=== PATIENT | female | born 1955 | race Caucasian/White ===

== ENCOUNTER 2017-01-16 11:28 | Emergency (ER) | payer OTHER ==
[~2017-01-16] VITALS: Ht 12.7 cm; Wt 2.7 kg
[~2017-01-16 11:28] MED LIST: ATEN25TA PO; CELE200C PO; HYDR-971 PO; OMEP40CA5 PO; PRED-220 PO; VITA1CAP PO
[2017-01-16 11:40] VITALS: BP 150/72
--- NOTE | 2017-01-16 13:42 | RAD ---
Indication right-sided facial weakness. Noncontrast images of the head were obtained. Comparison is made to previous examination 09/19/2016. The calvarium appears unremarkable. The visualized paranasal sinuses appear normal. There is no subdural or epidural hematoma. The ventricles and sulci are normal given the patient's age. There is no mass or midline shift. No hemorrhage is seen. No acute finding is apparent. IMPRESSION: No acute or significant finding seen in the head PQRS Compliance Statement: One or more of the following individualized dose reduction techniques were utilized for this examination: 1. Automated exposure control 2. Adjustment of the mA and/or kV according to patient size 3. Use of iterative reconstruction technique
--- NOTE | 2017-01-16 13:47 | PHYS DOC ---
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 She states that she felt a pulling in the right side of her mouth. She looked in the mirror and noticed mild drooping. She feels mild drooping of the right eyelid as well. She denies any headache, weakness or numbness of the extremities, slurred speech, or vision changes. She states that this feels the same as her previous Saul's palsy. Her PCP is Dr. Purnima Singh. Dr. Llanes is her neurologist. Review of Systems Review of Systems Constitutional: Denies fever or chills. [] Eyes: Denies change in visual acuity, redness, or eye pain. [] HENT: Denies ear pain, nasal congestion or sore throat. [] Respiratory: Denies cough or shortness of breath. [] Cardiovascular: Denies chest pain, palpitations or edema. [] GI: Denies abdominal pain, nausea, vomiting, bloody stools or diarrhea. [] : Denies dysuria, hematuria or urinary frequency. [] Musculoskeletal: Denies back pain or joint pain. [] Integument: Denies rash or skin lesions. [] Neurologic: Denies headache or sensory changes. Reports right facial droop and right eyelid drooping. Endocrine: Denies polyuria or polydipsia. [] Psych: Denies anxiety or depression. [] All systems reviewed and negative unless otherwise stated in the HPI. Allergies Allergies Allergies Coded Allergies Type Severity Reaction Last Updated Verified dimenhydrinate Allergy Mild Swelling 07/03/15 Yes Physical Exam Physical Exam Constitutional: Well developed, well nourished, no acute distress, non-toxic appearance. [] HENT: Normocephalic, atraumatic, bilateral external ears normal, oropharynx moist, no oral exudates, nose normal. [] Eyes: PERRLA, EOMI, conjunctiva normal, no discharge. There is mild right eyelid drooping with decreased infraorbital wrinkles compared to the left. Neck: Normal range of motion, no tenderness, supple, no stridor. [] Cardiovascular: Heart rate regular rhythm, no murmur [] Lungs & Thorax: Bilateral breath sounds clear to auscultation [] Skin: Warm, dry, no erythema, no rash. [] Back: No tenderness, no CVA tenderness. [] Extremities: No tenderness, no cyanosis, no clubbing, ROM intact, no edema. [] Neurologic: Alert and oriented X 3, normal motor function, normal sensory function, no focal deficits noted. There is mild drooping of the right side of the mouth. Nasolabial folds are equal bilaterally with smiling. There is mild droop of the right eyelid. There is no weakness or sensory deficit of the upper or lower extremities. Psychologic: Affect normal, judgement normal, mood normal. [] Current Patient Data Vital Signs Vital Signs Date Time Temp Pulse Resp B/P Pulse Ox O2 Delivery O2 Flow Rate FiO2 01/16/17 11:40 97.7 68 16 98 Room Air 97.7 EKG EKG [] Radiology/Procedures Radiology/Procedures REASON: right facial droop, hx bells palsy PROCEDURE: HEAD WO CONTRAST Indication right-sided facial weakness. Noncontrast images of the head were obtained. Comparison is made to previous examination 09/19/2016. The calvarium appears unremarkable. The visualized paranasal sinuses appear normal. There is no subdural or epidural hematoma. The ventricles and sulci are normal given the patient's age. There is no mass or midline shift. No hemorrhage is seen. No acute finding is apparent. IMPRESSION: No acute or significant finding seen in the head Course & Med Decision Making Course & Med Decision Making Pertinent Labs and Imaging studies reviewed. (See chart for details) Patient with a history of Saul's palsy presents with right-sided facial droop consistent with her previous Saul's palsy. On exam, there is mild droop of the right side of the mouth and the right eyelid. There are no other deficits. The patient was also seen and examined by Dr. Santoro. He agrees that this is likely the patient's Saul's palsy. The patient agrees to a CT scan of the head and the emergency department. 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 Reexamination at 1350: There is no change in the patient's facial droop. She denies any new or changing symptoms. Her examination is stable. I discussed CT head results. We again discussed return precautions, reviewing signs and symptoms of stroke. The patient is very familiar with the signs and symptoms of stroke. She will return immediately if she has any new or different symptoms. She is discharged home with prescription for prednisone and acyclovir. She is instructed to follow-up with her neurologist on Wednesday. She verbalizes understanding and agrees with plan. Dragon Disclaimer Dragon Disclaimer This electronic medical record was generated, in whole or in part, using a voice recognition dictation system. Departure Departure Impression: Primary Impression: Right-sided Saul's palsy Disposition: HOME, SELF-CARE Condition: STABLE Referrals: PURNIMA SINGH Jr, MD (PCP) SPEEDY LLANES MD Patient Instructions: Saul's Palsy Additional Instructions: Your CT scan does not show any acute abnormalities. Your facial droop appears to be due to Saul's palsy. This can also be a sign of a stroke. Return immediately to the emergency department if you have weakness or numbness on one side of your body, slurred speech, or confusion. Call 911. Please complete all the prescribed medications. Please follow-up with your neurologist on Wednesday. Return to emergency department if you have any new or concerning symptoms. Scripts Prednisone 10 Mg [id number] Mg PO UD PREDNISONE TAPER #60 TAB Ref 0 Take 5 tablets by mouth daily for 4 days, then take 4 tablets by mouth daily for 4 days, then take 3 tablets by mouth daily for 4 days, then take 2 tablets by mouth daily for 4 days, then take 1 tablet by mouth daily for 4 days. Prov:WILLIE KRAUSE 01/16/17 Valacyclovir Hcl (Valtrex)500 Mg [id number] Mg PO BID 5 Days Prov:WILLIE KRAUSE 01/16/17 WILLIE KRAUSE Jan 16, 2017 13:47
[2017-01-16] MEDS ORDERED: PRED-220 PO (13:58)
[2017-01-16] MEDS ORDERED: VALA500T5 PO (13:58)
== END 2017-01-16 14:01 | disposition home or self-care (01) ==
LOC: ER 11:28
DX: G51.0 Bell's palsy (principal); M19.90 Unspecified osteoarthritis, unspecified site; K22.70 Barrett's esophagus without dysplasia; Z95.0 Presence of cardiac pacemaker; Z88.8 Allergy status to other drugs, medicaments and biological substances
CPT/HCPCS: 70450; 99284-25

== ENCOUNTER → 2017-01-22 | Outpatient (CLI) | payer OTHER ==
[2017-01-16 11:40] VITALS: BP 150/72
[~2017-01-22] MED LIST changes: +VALA500T5 PO
[2017-01-22 14:32] LABS: CREATININE 0.8 mg/dL (0.6-1.0); GFR 72.9
== END | disposition home or self-care (01) ==
LOC: LAB 13:50
PROVIDERS: ATTEND Psychiatry & Neurology Neurology
DX: G51.0 Bell's palsy (principal)
CPT/HCPCS: 36415; 82565; 82607; 84443; 84520

== ENCOUNTER → 2017-02-09 | Outpatient (CLI) | payer OTHER ==
[2017-01-16 11:40] VITALS: BP 150/72
[~2017-02-09] MED LIST changes: +CONTRAST GIVEN MC PRN; +IOHEXOL 350 MG/ML 100ML VIAL. IV ONE
--- NOTE | 2017-02-09 16:08 | RAD ---
Indication: Saul's palsy. Neck pain. Extremity tingling. Technique: Axial images and coronal and sagittal maximum intensity projection reformatted images are provided. 3-D volume rendered imaging is provided. 75 mL of intravenous Omnipaque 350 was administered without complication. No comparison is available. Measurements follow NASCET methodology. One or more of the following individualized dose reduction techniques were utilized for this examination: 1. Automated exposure control 2. Adjustment of the mA and/or kV according to patient size 3. Use of iterative reconstruction technique Findings: CTA neck: There is normal branching from the aortic arch. There is no brachiocephalic or subclavian narrowing. Both common carotid arteries are without stenosis. There is mild plaquing at the right carotid bulb. No right ICA stenosis is apparent. Left internal carotid artery is likewise without narrowing. Left vertebral artery is dominant. No focal vertebral artery narrowing is identified. Lung apices are clear. Pacemaker is noted. CTA head: Cavernous carotids are without stenosis or aneurysm. Anterior and middle cerebral arteries are without stenosis or aneurysm. Left vertebral artery is dominant. Right vertebral artery is diminutive but does supply the basilar artery as well. Basilar artery is without stenosis. There is a origin of the right posterior cerebral artery. No posterior circulation stenosis or aneurysm is apparent. Superior sagittal sinus and transverse sinuses are patent. Impression: 1. Minimal plaquing at the right carotid bulb. No hemodynamically significant stenosis. 2. Essentially normal CT angiogram head.
--- NOTE | 2017-02-09 16:11 | RAD ---
Indication: Neck pain. Extremity tingling. Technique: Axial images and coronal and sagittal reformatted images are provided. No comparison is available. One or more of the following individualized dose reduction techniques were utilized for this examination: 1. Automated exposure control 2. Adjustment of the mA and/or kV according to patient size 3. Use of iterative reconstruction technique Findings: There is no fracture or dislocation. Prevertebral soft tissues are within normal limits. Craniovertebral junction is unremarkable. Mild degenerative changes at C5-C6 and C6-C7 include disc osteophyte complexes and uncinate process spurring. Mild facet hypertrophy is greatest at C2-C3. At C5-C6, there may be mild to moderate foraminal narrowing and mild canal stenosis. Lung apices are clear. Pacemaker is noted. Lymph nodes along the cervical chains may be reactive. Impression: Mild degenerative changes in the cervical spine, greatest at C5-C6.
== END | disposition home or self-care (01) ==
LOC: CT 14:55
PROVIDERS: ATTEND Psychiatry & Neurology Neurology
DX: M47.892 Other spondylosis, cervical region (principal); M54.2 Cervicalgia
CPT/HCPCS: 70496; 70498; 72125; Q9967

== ENCOUNTER → 2017-08-24 | Outpatient (CLI) | payer OTHER ==
[~2017-08-24] MED LIST changes: -CONTRAST GIVEN MC PRN; -IOHEXOL 350 MG/ML 100ML VIAL. IV ONE
== END | disposition home or self-care (01) ==
LOC: MAMMO 13:36
PROVIDERS: ATTEND Obstetrics & Gynecology

== ENCOUNTER → 2018-01-21 | Outpatient (CLI) | payer OTHER ==
[2018-01-21 07:29] LABS: ADD MAN DIFF? NO
[2018-01-21 07:36] LABS: BASO # 0.1 x10^3/uL (0.0-0.2); BASO % 1 % (0-3); EOS # 0.2 x10^3/uL (0.0-0.7); EOS % 2 % (0-3); HEMOGLOBIN 13.7 g/dL (12.0-15.5); LYMPH # 2.1 x10^3/uL (1.0-4.8); LYMPH % 29 % (24-48); MEAN CORPUSCULAR HEMOGLOBIN 30 pg (25-35); MEAN CORPUSCULAR HGB CONC 33 g/dL (31-37); MEAN CORPUSCULAR VOLUME 90 fL (79-100); MONO # 0.6 x10^3/uL (0.0-1.1); MONO % 8 % (0-9); NEUT # 4.5 x10^3uL (1.8-7.7); NEUT % 60 % (31-73); PLATELET COUNT 272 x10^3/uL (140-400); RED BLOOD COUNT 4.55 x10^6/uL (3.50-5.40); RED CELL DISTRIBUTION WIDTH 12.6 % (11.5-14.5); WHITE BLOOD COUNT 7.4 x10^3/uL (4.0-11.0)
[2018-01-21 08:03] LABS: THYROID STIM HORMONE (TSH) 1.769 uIU/mL (0.358-3.74)
[2018-01-21 08:16] LABS: ALBUMIN 3.9 g/dL (3.4-5.0); ALBUMIN/GLOBULIN RATIO 1.1 (1.0-1.7); ALK PHOS 71 U/L (46-116); ALT (SGPT) 34 U/L (14-59); ANION GAP 5 (6-14); AST (SGOT) 23 U/L (15-37); BLOOD UREA NITROGEN 25 mg/dL (7-20); BUN/CREATININE RATIO 36 (6-20); CALCIUM 9.5 mg/dL (8.5-10.1); CARBON DIOXIDE 31 mmol/L (21-32); CHLORIDE 103 mmol/L (98-107); CHOLESTEROL 232 mg/dL (0-200); CHOLESTEROL/HDL RATIO 3.3; CREATININE 0.7 mg/dL (0.6-1.0); GFR 84.8; GLUCOSE 103 mg/dL (70-99); HDLC 70 mg/dL (40-60); LDLC 152 mg/dL (0-100); NON-HDL CHOLESTEROL 162 mg/dL (0-129); POTASSIUM 4.7 mmol/L (3.5-5.1); SODIUM 139 mmol/L (136-145); TOTAL BILIRUBIN 0.2 mg/dL (0.2-1.0); TOTAL PROTEIN 7.3 g/dL (6.4-8.2); TRIGLYCERIDES 48 mg/dL (0-150); VLDLC 10 mg/dL (0-40)
== END | disposition home or self-care (01) ==
LOC: LAB 06:46
DX: Z00.00 Encounter for general adult medical examination without abnormal findings (principal); Z79.899 Other long term (current) drug therapy
CPT/HCPCS: 36415; 80053; 80061; 84443; 85025

== ENCOUNTER → 2018-02-09 | Day surgery (SDC) | payer OTHER ==
[~2018-02-09] MED LIST changes: -ATEN25TA PO; +BALANCED SALT IRRIG OPHTH SOLN 15 ML BOTTLE.; -CELE200C PO; -HYDR-971 PO; +LIDOCAINE 1% PF 2 ML VIAL.; +LIDOCAINE 1% PF 5 ML VIAL.; +LIDOCAINE 2% JELLY 6ML IN APPLICATOR.; +LIDOCAINE 2% JELLY 6ML IN APPLICATOR. MM; +MIDAZOLAM HCL/PF 2 MG/2 ML VIAL.; +MORPHINE SULFATE 4 MG/ML DISP.SYRIN. IV; -OMEP40CA5 PO; +ONDANSETRON PF 4 MG/2 ML VIAL. IV; -PRED-220 PO; +PROCHLORPERAZINE 10 MG/2 ML VIAL. IV; +PROPOFOL 20 ML IV; -VALA500T5 PO; -VITA1CAP PO; +fentaNYL PF VIAL 100 MCG/2 ML VIAL IV
[2018-02-09] MEDS: IV RINGERS,LACTATED 1000ML 1,000 ML IV (11:01)
[2018-02-09] MEDS: PROPARACAINE 0.5% OPHTH SOLUTION 15ML BOTTLE. OD (11:02)
[2018-02-09] MEDS: PHENYLEPHRINE 10% OPHTH SOLUTION 5ML BOTTLE. OD ×3 (11:02→11:13)
[2018-02-09] MEDS: CYCLOPENTOLATE 1% OPTH SOLUTION 2ML BOTTLE. OD ×3 (11:02→11:13)
[2018-02-09] MEDS: CIPROFLOXACIN 0.3% OPHTH SOLUTION 5ML BOTTLE. OD (11:14)
[2018-02-09] MEDS: NEO/POLYMYX/DEXAMETH OPHTH OINTMENT 3.5GM TUBE. OD (12:35)
[2018-02-09] MEDS: CHONDROITIN-SOD-HYALURONATE 0.5 ML DISP.SYRIN. (12:35)
[2018-02-09] MEDS: CHONDROIT-SOD-HYALURONATE KIT. (12:35)
[2018-02-09] MEDS: LIDOCAINE 1% PF 2 ML VIAL. ID (13:58)
[2018-02-09] MEDS: NEO/POLYMYX/DEXAMETH OPHTH OINTMENT 3.5GM TUBE. (15:42)
== END ==
LOC: SURG 10:18
DX: H26.9 Unspecified cataract (principal); M19.90 Unspecified osteoarthritis, unspecified site; K21.9 Gastro-esophageal reflux disease without esophagitis; I49.5 Sick sinus syndrome; G51.0 Bell's palsy; I48.91 Unspecified atrial fibrillation; I10 Essential (primary) hypertension; K22.70 Barrett's esophagus without dysplasia; Z95.0 Presence of cardiac pacemaker; Z88.8 Allergy status to other drugs, medicaments and biological substances; Z79.899 Other long term (current) drug therapy; Z98.890 Other specified postprocedural states
CPT/HCPCS: 66984; C1780; J0171; J0690; J1580; J2250; J2704

== ENCOUNTER → 2018-04-15 | Outpatient (CLI) | payer OTHER ==
[2018-04-15 11:59] LABS: C-REACTIVE PROTEIN 1.9 mg/L (0-3.3)
[2018-04-15 13:34] LABS: SEDIMENTATION RATE 6 (0-25)
[2018-04-15 22:16] LABS: RHEUMATOID FACTOR <10.0 IU/mL (0.0-13.9)
[2018-04-16 06:21] LABS: LYME IGG/IGM AB <0.91 ISR (0.00-0.90)
[2018-04-18 14:21] LABS: GLIA IGA 2 units (0-19); GLIA IGG 1 units (0-19); TRANSGLUTAMINASE IGA AB <2 U/mL (0-3); TRANSGLUTAMINASE IGG AB <2 U/mL (0-5)
[2018-04-18 15:25] LABS: ANA INTERP Negative (.)
== END | disposition home or self-care (01) ==
LOC: LAB 11:08
DX: M25.50 Pain in unspecified joint (principal)
CPT/HCPCS: 36415; 83516; 85651; 86038; 86140; 86431; 86617; 86618

== ENCOUNTER → 2018-04-27 | Outpatient (CLI) | payer OTHER | END | disposition home or self-care (01) | LOC: US 10:33 | DX: M79.89 Other specified soft tissue disorders (principal) | CPT/HCPCS: 93971 ==

== ENCOUNTER → 2018-06-27 | Outpatient (CLI) | payer OTHER | END | disposition home or self-care (01) | LOC: US 09:53 | DX: M71.22 Synovial cyst of popliteal space [Baker], left knee (principal); I10 Essential (primary) hypertension; E78.5 Hyperlipidemia, unspecified; K21.9 Gastro-esophageal reflux disease without esophagitis | CPT/HCPCS: 76881 ==

== ENCOUNTER 2018-08-15 06:10 | Emergency (ER) | payer OTHER ==
[~2018-08-15] VITALS: Ht 165.1 cm; Wt 80.7 kg
[2018-08-15 06:10] VITALS: BP 177/86
[~2018-08-15 06:10] MED LIST changes: +ATEN25TA PO; -BALANCED SALT IRRIG OPHTH SOLN 15 ML BOTTLE.; +CELE200C PO; +HYDR-971 PO; -LIDOCAINE 1% PF 2 ML VIAL.; -LIDOCAINE 1% PF 5 ML VIAL.; -LIDOCAINE 2% JELLY 6ML IN APPLICATOR.; -LIDOCAINE 2% JELLY 6ML IN APPLICATOR. MM; +LORA10TA3 PO; +MELO7.5T29 PO; -MIDAZOLAM HCL/PF 2 MG/2 ML VIAL.; -MORPHINE SULFATE 4 MG/ML DISP.SYRIN. IV; +MULT-223 PO; +OMEP20TA8 PO; +OMEP40CA5 PO; -ONDANSETRON PF 4 MG/2 ML VIAL. IV; +PRED-220 PO; -PROCHLORPERAZINE 10 MG/2 ML VIAL. IV; -PROPOFOL 20 ML IV; +VALA500T5 PO; +VITA1CAP PO; -fentaNYL PF VIAL 100 MCG/2 ML VIAL IV
--- NOTE | 2018-08-15 06:36 | PHYS DOC ---
Past Medical History Past Medical History: Arthritis, Arrhythmia, Other Additional Past Medical Histor: SIC SINUS RHYTHM, BARRETS ESPPHAGUS Past Surgical History: Pacemaker, Other Additional Past Surgical Histo: RT KNEE SCOPE, LASIX, LEFT BREAST BIOPSY, PACEMAKER Alcohol Use: Occasionally Drug Use: None Adult General Chief Complaint Chief Complaint: EYE PROBLEMS [facility] HPI Patient is a 63 year old female who presented to the ER today for evaluation of visual disturbance since yesterday. Patient said last night , she started having episode of seeing arch of light in her left eye. She denied any blurry vision, no headache, no floater. Patient tried to sleep and then woke up this morning, tried to go to work and still seeing arches of light on her left eye. She denied any pain in her eye. She had cataract surgery on right eye [address] Sky. Patient is not on any blood thinner. She has a pacemaker due to sick sinus syndrome. Patient also has history of HTN, on medication for it. Patient denied any nausea or vomiting. NO chest pain, no shortness of air. No fever. She said she googled the symptoms and it is classic for retinal detachment so she came here for evaluation. Review of Systems Review of Systems Constitutional: Denies fever or chills [] Eyes: Denies change in visual acuity, redness, or eye pain. POSITIVE FOR VISUAL DISTURBANCE. HENT: Denies nasal congestion or sore throat [] Respiratory: Denies cough or shortness of breath [] Cardiovascular: No additional information not addressed in HPI [] GI: Denies abdominal pain, nausea, vomiting, bloody stools or diarrhea [] : Denies dysuria or hematuria [] Musculoskeletal: Denies back pain or joint pain [] Integument: Denies rash or skin lesions [] Neurologic: Denies headache, focal weakness or sensory changes [] Endocrine: Denies polyuria or polydipsia [] All other systems were reviewed and found to be within normal limits, except as documented in this note. Current Medications Current Medications Current Medications Medications (Trade) Dose Ordered Sig/Gamaliel Start Time Stop Time Status Last Admin Dose Admin Tetracaine HCl (Tetracaine) 1 drop 1X ONCE 08/15/18 07:00 08/15/18 07:01 08/15/18 06:30 1 DROP Allergies Allergies Allergies Coded Allergies Type Severity Reaction Last Updated Verified dimenhydrinate Allergy Intermediate Swelling 02/09/18 Yes Physical Exam Physical Exam Constitutional: Well developed, well nourished, no acute distress, non-toxic appearance. [] HENT: Normocephalic, atraumatic, bilateral external ears normal, oropharynx moist, no oral exudates, nose normal. [] Eyes: PERRLA, EOMI, conjunctiva normal, no discharge. INTRAOCULAR PRESSURE OF LEFT EYE : 13, ON RIGHT EYE: 15. VISUAL ACUITY : 20/25 ON LEFT EYE, 20/25 ON RIGHT EYE. Neck: Normal range of motion, no tenderness, supple, no stridor. [] Cardiovascular:Heart rate regular rhythm, no murmur [] Lungs & Thorax: Bilateral breath sounds clear to auscultation [] Abdomen: NOT DONE Skin: Warm, dry, no erythema, no rash. [] Back: NOT DONE Extremities: NOT DONE Neurologic: Alert and oriented X 3, normal motor function, normal sensory function, no focal deficits noted. [] Psychologic: Affect normal, judgement normal, mood normal. [] Current Patient Data Vital Signs Vital Signs Date Time Temp Pulse Resp B/P (MAP) Pulse Ox O2 Delivery O2 Flow Rate FiO2 08/15/18 06:10 98.6 66 18 177/86 (116) 99 Room Air 98.6 EKG EKG [] Radiology/Procedures Radiology/Procedures [] Course & Med Decision Making Course & Med Decision Making Pertinent Labs and Imaging studies reviewed. (See chart for details) Consulted with patient's canvass manager, Dr. CHARLOTTE SKY at 6:50 am, Dr. Sky suspected patient to have vitreous detachment, recommended to discharge patient home, she will need to call his office today at 8:30 am, his partner will see her in the clinic today for evaluation. Dragon Disclaimer Dragon Disclaimer This electronic medical record was generated, in whole or in part, using a voice recognition dictation system. Departure Departure Impression: Primary Impression: Vitreous detachment of left eye Disposition: 01 HOME, SELF-CARE Condition: STABLE Referrals: PURNIMA SINGH Jr, MD (PCP) CHARLOTTE SKY MD Please call Dr. Sky Today at 8:30 am, they will work you into the schedule today. Patient Instructions: Eye - Vitreous Detachment JEFFERY CARDENAS DO Aug 15, 2018 06:36
[2018-08-15] MEDS ORDERED: TETRACAINE 0.5% OPHTH SOLUTION 4ML BOTTLE. OU ONE (07:00)
== END 2018-08-15 07:00 | disposition home or self-care (01) ==
LOC: ER 06:10
DX: M19.90 Unspecified osteoarthritis, unspecified site (principal); Z95.0 Presence of cardiac pacemaker; Z88.8 Allergy status to other drugs, medicaments and biological substances
CPT/HCPCS: 99282

== ENCOUNTER → 2018-08-26 | Outpatient (CLI) | payer OTHER ==
[2018-08-15 06:10] VITALS: BP 177/86
--- NOTE | 2018-08-26 17:49 | RAD ---
MR#: [id number] Date of Study: 08/26/2018 Ordering Physician: WALESKA WINTER, Referring Physician: WALESKA WINTER, Tech: Suzanne Long, FENG, RVT, RTR APPROVED REPORT Bilateral Lower Extremity Venous Study for DVT, Venous Competence Patient Location: OUT-PATIENT Indications Lower Extremity Edema: Bilateral Varicose Veins Findings The bilateral lower extremity deep veins were evaluated for thrombus with color Doppler, spectral and grayscale images. On the right the grayscale images of the common femoral, superficial femoral and popliteal veins do n ot demonstrate any evidence of thrombus and these veins appear to be compressible. The below-knee vei ns were not well visualized but grossly appear to be compressible. Spectral imaging and color Doppler do not reveal any evidence of obstruction to flow with normal respirophasic variation above the knee . Below the knee there is spontaneous flow noted. On the left, the grayscale images of the common femoral, superficial femoral and popliteal veins do n ot demonstrate any evidence of thrombus and these veins appear to be compressible. The below-knee vei ns again were not well visualized but grossly appear to be compressible. Spectral imaging and color D oppler do not reveal any evidence of obstruction to flow with normal respirophasic variation above th e knee. The below-knee veins demonstrate spontaneous flow. Incidental note is made of a right and left groin mass measuring approximately 1.7 x 1.5 x 0.5 cm on the right and 1.2 x 0.7 x 0.57 m on the left. Differential diagnosis includes lymph nodes versus less likely would be incomplete hernias versus cysts versus lipoma. Consider dedicated soft tissue or so for better delineation. Incidental note is also made of a left-sided Villatoro's cyst. Critical Notification Critical Value: No <Conclusion> 1. No evidence of DVT in the bilateral lower extremity is. 2. Isn't ill note is made of bilateral groin masses most consistent with lymphadenopathy but other pr ocesses cannot be excluded, consider abdominal/pelvic CT or dedicated soft tissue ultrasound the groi ns. Signed by : Bertrand Linares, Electronically Approved : 08/26/2018 17:48:38
--- NOTE | 2018-08-26 17:52 | RAD ---
MR#: [id number] Date of Study: 08/26/2018 Ordering Physician: WALESKA WINTER, Referring Physician: WALESKA WINTER, Tech: Suzanne Long RDMS, CLEMENTET, RTR APPROVED REPORT Patient Location : OUT-PATIENT Indications Lower Extremity Edema : Bilateral Varicose Veins Deep System Deep Venous Thrombosis present : No Deep Venous Reflux present : Yes Greater Saphenous Veins (GSV) Significant venous relux noted in the RIGHT GSV at the following levels : Superficial Femoral Junctio n, Proximal Thigh, Mid Thigh, Distal Thigh, Proximal Calf, Mid Calf, Distal Calf Significant venous relux noted in the LEFT GSV at the following levels : Superficial Femoral Junction , Proximal Thigh, Mid Thigh, Distal Thigh, Proximal Calf Findings Grayscale images of the bilateral greater and lesser saphenous veins do not demonstrate any obvious t hrombus. There is significant reflux noted in the bilateral greater saphenous veins at 3.5 seconds. The left g reat saphenous vein is diminutive in nature below the knee. Bilateral lesser saphenous veins do not demonstrate any evidence of reflux. Critical Notification Critical Value: No <Conclusion> Positive for significant reflux in the bilateral greater saphenous veins Signed by : Bertrand Linares, Electronically Approved : 08/26/2018 17:51:35
== END | disposition home or self-care (01) ==
LOC: US 14:11
PROVIDERS: ATTEND Internal Medicine Cardiovascular Disease
DX: I83.891 Varicose veins of right lower extremity with other complications (principal); M71.22 Synovial cyst of popliteal space [Baker], left knee; I10 Essential (primary) hypertension; E78.5 Hyperlipidemia, unspecified; I48.91 Unspecified atrial fibrillation; K21.9 Gastro-esophageal reflux disease without esophagitis; Z88.8 Allergy status to other drugs, medicaments and biological substances
CPT/HCPCS: 93970

== ENCOUNTER → 2018-09-09 | Day surgery (SDC) | payer OTHER ==
[~2018-09-09] MED LIST changes: +HYDROmorphone 2 MG/ML VIAL IV PRN; +IV RINGERS,LACTATED 1000ML 1,000 ML IV SCH; +LIDOCAINE 1% PF 2 ML VIAL. ID PRN; +LIDOCAINE 2% PF 2ML VIAL. ONE; +MORPHINE SULFATE 2 MG/ML VIAL. IV PRN; +ONDANSETRON PF 4 MG/2 ML VIAL. IV PRN; +PROCHLORPERAZINE 10 MG/2 ML VIAL. IV PRN; +PROPOFOL 40 ML IV ONE; +fentaNYL PF VIAL 100 MCG/2 ML VIAL IV PRN
[2018-09-09 09:54] VITALS: BP 102/53
--- NOTE | 2018-09-09 11:05 | HP ---
ADMIT DATE: 09/09/2018 REASON FOR PRESENTATION: Barton's and a colorectal screening. HISTORY OF PRESENT ILLNESS: This 63-year-old female whose past medical history is significant for hypertension, sick sinus syndrome, gastroesophageal reflux disease with Barton's, Saul's palsy, status post vitreous detachment, Lasik surgery and knee arthroscopy, is seen for surveillance of her Barton's. She has been on omeprazole, without dysphagia, odynophagia or bleeding. She does avoid alcohol, nicotine and caffeine at this time and surveillance colon exam. Bowel habits are regular, without diarrhea, constipation or bleeding and family history likewise is unrevealing. PAST MEDICAL HISTORY: Hypertension, sick sinus syndrome, vitreous detachment Saul's palsy, arthritis and Barton's. ALLERGIES: DIMENHYDRINATE. MEDICATIONS: Include atenolol, Celebrex, loratadine, omeprazole and vitamin B. FAMILY AND SOCIAL HISTORY: Significant for blood pressure with both parents as well as pancreatic cancer with her mother. PAST SURGICAL HISTORY: Breast biopsy, right cataract, retinal detachment and knee arthroscopy. REVIEW OF SYSTEMS: As per records. PHYSICAL EXAMINATION: GENERAL: Well-nourished, well-developed female. VITAL SIGNS: Temperature is 97, pulse 72 and respiratory rate is 20. HEENT EXAMINATION: Normocephalic and atraumatic head. Pupils and extraocular muscles are not tested. Sclerae are anicteric. NECK: Supple. LUNGS: Clear. CARDIOVASCULAR EXAMINATION: Reveals S1, S2, without S3, S4 or appreciable murmur. Pacemaker is noted in the left anterior chest. ABDOMEN: Examination reveals a soft abdomen, without appreciable hepatosplenomegaly. EXTREMITIES: Examination reveals no cyanosis, clubbing or edema. IMPRESSION: 1. Barton's. Surveillance exam is recommended at this time. Risks and benefits were discussed and the patient is willing to proceed at this time. 2. Colorectal screening is recommended. Risks and benefits discussed. The patient is willing to proceed. MARILYN PORTILLO MD DR: JAYDA/oliverio JOB#: [id number] / [id number]
--- NOTE | 2018-09-13 14:09 | PATHOLOGY ---
[facility] Accession Number: [id number] . 01 Material submitted: . PART A: DISTAL ESOPHAGUS BX PART B: ASCENDING COLON POLYP . 01 Clinician provided ICD-10: Z87.19 Z12.11 . 01 Clinical history: . Pre-OP DX: Hx Barton's/screening Post-OP DX: Rule out dysplasia . 02 Diagnosis: A. Esophageal biopsies, distal esophagus: - Segments of hyperplastic squamous esophageal mucosa and esophago- gastric mucosa showing chronic inflammation, consistent with reflux esophagitis. . B. Colon biopsies, ascending colon polyp: - Hyperplastic polyp. . MBR/09/13/2018 . 02 Comment: Sections of the distal esophageal biopsy reveal segments of tangentially-oriented hyperplastic squamous esophageal mucosa, one of which has a contiguous small segment of gastric mucosa showing chronic inflammation. The findings are consistent with reflux esophagitis. There is no evidence of Barton's change, dysplasia, or malignancy. Sections of the ascending colon biopsy reveal a hyperplastic polyp and a few small mucosa-associated lymphoid aggregates. There are no adenomatous changes or evidence of malignancy. . (JPM:eyad; 09/12/2018) . 02 Electronically signed: . Landry Dela Cruz MD, Pathologist NPI- [id number] . 01 Gross description: . A. Received in formalin labeled "Shelley Kelly, distal esophagus BX," are 4 segments of romero soft tissue measuring 1.4 x 0.8 x 0.2 cm in aggregate dimensions and ranging from 0.3 to 0.5 cm in maximum dimension. The specimen is submitted entirely in cassette A1. . B. Received in formalin labeled "Robin Shelley, ascending colon polyp," are 3 segments of romero soft tissue measuring 0.9 x 0.6 x 0.3 cm in aggregate dimensions and ranging from 0.3 to 0.4 cm in maximum dimension. The specimen is submitted entirely in cassette B1. (TSD; 09/09/2018) TOB/TOB . 02 Pathologist provided ICD-10: K21.0, K63.5 . 02 CPT . 755592, [id number] Specimen Comment: A courtesy copy of this report has been sent to Specimen Comment: [phone], . Specimen Comment: Report sent to / DR SINGH Specimen Comment: A duplicate report has been generated due to demographic updates. Performed at: 01 [facility] [address], [place] [id number] MD Joey Vu MD Phone: [phone] Performed at: 02 [facility] [address], [place] [id number] MD Landry Dela Cruz MD Phone: [phone]
== END | disposition home or self-care (01) ==
LOC: ENDOS 07:33
PROVIDERS: ATTEND Internal Medicine Gastroenterology
DX: Z12.11 Encounter for screening for malignant neoplasm of colon (principal); K64.0 First degree hemorrhoids; K63.5 Polyp of colon; K31.7 Polyp of stomach and duodenum; K21.0 Gastro-esophageal reflux disease with esophagitis; Z88.8 Allergy status to other drugs, medicaments and biological substances; I10 Essential (primary) hypertension; I49.5 Sick sinus syndrome; G51.0 Bell's palsy; Z98.890 Other specified postprocedural states; Z79.899 Other long term (current) drug therapy; Z82.49 Family history of ischemic heart disease and other diseases of the circulatory system; Z80.0 Family history of malignant neoplasm of digestive organs; Z98.41 Cataract extraction status, right eye; Z96.1 Presence of intraocular lens
CPT/HCPCS: 43239; 45380; 88305; J2001; J2704

== ENCOUNTER → 2018-10-07 | Outpatient (CLI) | payer OTHER ==
[2018-09-09 09:54] VITALS: BP 102/53
[~2018-10-07] MED LIST changes: +HYDR-3164 PO; -HYDR-971 PO; -HYDROmorphone 2 MG/ML VIAL IV PRN; +IOHEXOL 240 MG/ML 50ML VIAL. PO ONE; +IOHEXOL 300 MG/ML 100ML VIAL. IV ONE; -IV RINGERS,LACTATED 1000ML 1,000 ML IV SCH; -LIDOCAINE 1% PF 2 ML VIAL. ID PRN; -LIDOCAINE 2% PF 2ML VIAL. ONE; -MORPHINE SULFATE 2 MG/ML VIAL. IV PRN; -ONDANSETRON PF 4 MG/2 ML VIAL. IV PRN; -PROCHLORPERAZINE 10 MG/2 ML VIAL. IV PRN; -PROPOFOL 40 ML IV ONE; -fentaNYL PF VIAL 100 MCG/2 ML VIAL IV PRN
--- NOTE | 2018-10-07 16:38 | RAD ---
CT of the abdomen and pelvis with contrast, 10/07/2018: HISTORY: Inguinal lymphadenopathy Multidetector CT imaging was performed following oral and IV administration of contrast. Transvenous pacing leads extend into the heart. No hepatic abnormality is seen. The gallbladder is unremarkable. The pancreas shows no abnormality. The spleen is of normal size. No renal or adrenal abnormality is detected. There is only minimal aortoiliac calcific plaquing. No inguinal, iliac or retroperitoneal adenopathy is seen. The uterus is unremarkable. The bowel loops are not dilated. No free air or free fluid is evident in the abdomen or pelvis. There is considerable degenerative disc disease at L5-S1. There is moderate facet joint arthropathy in the lower lumbar spine. The combination of findings is causing mild central spinal stenosis and moderate bilateral foraminal encroachment at L5-S1. IMPRESSION: No acute abdominal or pelvic abnormality is detected. PQRS Compliance Statement: One or more of the following individualized dose reduction techniques were utilized for this examination: 1. Automated exposure control 2. Adjustment of the mA and/or kV according to patient size 3. Use of iterative reconstruction technique Electronically signed by: Ashkan Morales MD (10/07/2018 4:35 PM) [facility]
== END | disposition home or self-care (01) ==
LOC: CT 16:07
PROVIDERS: ATTEND Internal Medicine
DX: M51.37 Other intervertebral disc degeneration, lumbosacral region (principal); M48.061 Spinal stenosis, lumbar region without neurogenic claudication; M47.896 Other spondylosis, lumbar region
CPT/HCPCS: 74177; Q9966; Q9967

== ENCOUNTER → 2018-10-10 | Outpatient (CLI) | payer OTHER ==
[2018-09-09 09:54] VITALS: BP 102/53
[~2018-10-10] MED LIST changes: -HYDR-3164 PO; +HYDR-971 PO; -IOHEXOL 240 MG/ML 50ML VIAL. PO ONE; -IOHEXOL 300 MG/ML 100ML VIAL. IV ONE
--- NOTE | 2018-10-10 15:39 | RAD ---
DATE: 10/10/2018 EXAM: MAMMO ELIZABETH SCREENING BILATERAL HISTORY: Screening evaluation. Previous benign left breast biopsy. Family members have been diagnosed with breast cancer but not first-degree relatives. COMPARISON: 09/16/2016 and 10/05/2017 mammographic exams This study was interpreted with the benefit of Computerized Aided Detection (CAD). Breast Density: SCATTERED The breast parenchyma shows scattered fibroglandular densities. Breast parenchyma level B. FINDINGS: Benign calcification is present. Small mass involving the left lower breast is stable measuring less than 0.3 cm diameter. No new masses or suspicious distortion. No suspicious calcification cluster. IMPRESSION: Normal BI-RADS CATEGORY: 2 BENIGN FINDING(S) RECOMMENDED FOLLOW-UP: 12M 12 MONTH FOLLOW-UP PQRS compliance statement: Patient information was entered into a reminder system with a target due date in one year for the next mammogram. Mammography is a sensitive method for finding small breast cancers, but it does not detect them all and is not a substitute for careful clinical examination. A negative mammogram does not negate a clinically suspicious finding and should not result in delay in biopsying a clinically suspicious abnormality. "Our facility is accredited by the [employer] Mammography Program."
== END | disposition home or self-care (01) ==
LOC: MAMMO 14:27
PROVIDERS: ATTEND Obstetrics & Gynecology
DX: Z12.31 Encounter for screening mammogram for malignant neoplasm of breast (principal); N64.89 Other specified disorders of breast
CPT/HCPCS: 77063; 77067

== ENCOUNTER → 2019-01-30 | Outpatient (CLI) | payer OTHER ==
[2018-09-09 09:54] VITALS: BP 102/53
[~2019-01-30] MED LIST changes: +HYDR-3164 PO; -HYDR-971 PO; -MULT-223 PO; +MULT-629 PO
--- NOTE | 2019-01-30 14:52 | CARD ---
MR#: [id number] Date of Study: 01/30/2019 Ordering Physician: WALESKA WINTER, Referring Physician: WALESKA WINTER Tech: Trinidad Alvarez RDCS APPROVED REPORT EXAM: Two-dimensional and M-mode echocardiogram with Doppler and color Doppler. Other Information Quality : GoodHR: 66bpm Rhythm : NSR INDICATION SSS 2D DIMENSIONS RVDd3.5 (2.9-3.5cm)Left Atrium(2D)4.0 (1.6-4.0cm) IVSd1.0 (0.7-1.1cm)Aortic Root(2D)3.4 (2.0-3.7cm) LVDd4.4 (3.9-5.9cm)LVOT Diameter2.4 (1.8-2.4cm) PWd0.9 (0.7-1.1cm)LVDs2.7 (2.5-4.0cm) FS (%) 38.4 %SV61.9 ml LVEF(%)65.0 (>50%) M-Mode DIMENSIONS Left Atrium(MM)4.52 (2.5-4.0cm)Aortic Root3.55 (2.2-3.7cm) Aortic Valve AoV Peak Grady.119.2cm/sAoV VTI29.4cm AO Peak GR.5.7mmHgLVOT Peak Grady.97.6cm/s AO Mean GR.3mmHgAVA (VMAX)3.69cm2 DELIA (VTI)3.20cm2 Mitral Valve MV E Nhueyhql73.8cm/sMV E Peak Gr.3mmHg MV DECEL NINE960pdVG A Etejvjub66.3cm/s MV E Mean Gr.1mmHgE/A Ratio1.7 MV A Vvwwvmej068ct Pulmonary Valve PV Peak Fnjbtzqs497.9cm/s Tricuspid Valve TR P. Cmakxvyf756mg/sRAP OHOIESQA4auUf TR Peak Gr.63znHyCOHZ72fmFa Pulmonary Vein S1 Wzbyqinr72.3cm/sD2 Ibvvxcyc10.5cm/s PVa qdqsdhpv402bnfr LEFT VENTRICLE The left ventricle is normal size. There is normal left ventricular wall thickness. The left ventricu lar systolic function is normal and the ejection fraction is within normal range. The Ejection Fracti on is 60-65%. There is normal LV segmental wall motion. The left ventricular diastolic function and f illing is normal for age. RIGHT VENTRICLE The right ventricle is normal size. There is normal right ventricular wall thickness. The right ventr icular systolic function is normal. ATRIA The left atrium is borderline dilated. The right atrium size is normal. The interatrial septum is int act with no evidence for an atrial septal defect or patent foramen ovale as noted on 2-D or Doppler i maging. AORTIC VALVE The aortic valve is normal in structure and function. The aortic valve is trileaflet. Doppler and Col or Flow revealed trace aortic regurgitation. There is no significant aortic valvular stenosis. MITRAL VALVE The mitral valve is normal in structure and function. There is no evidence of mitral valve prolapse. There is no mitral valve stenosis. Doppler and Color-flow revealed trace mitral regurgitation. TRICUSPID VALVE The tricuspid valve is normal in structure and function. Doppler and Color Flow revealed trace tricus pid regurgitation. The PA pressure was estimated at 36 mmHg. There is no tricuspid valve prolapse or vegetation. There is no tricuspid valve stenosis. PULMONIC VALVE Doppler and Color Flow revealed trace to mild pulmonic valvular regurgitation. There is no pulmonic v alvular stenosis. GREAT VESSELS The aortic root is normal in size. The ascending aorta is normal in size. The IVC is normal in size a nd collapses >50% with inspiration. PERICARDIAL EFFUSION There is no evidence of significant pericardial effusion. Critical Notification Critical Value: No <Conclusion> The left ventricular systolic function is normal and the ejection fraction is within normal range. Th e Ejection Fraction is 60-65%. There is normal LV segmental wall motion. Signed by : Bertrand Linares, Electronically Approved : 01/30/2019 14:51:40
== END | disposition home or self-care (01) ==
LOC: ECHO 12:55
PROVIDERS: ATTEND Internal Medicine Cardiovascular Disease
DX: I49.5 Sick sinus syndrome (principal)
CPT/HCPCS: 93306

== ENCOUNTER → 2019-05-22 | Outpatient (CLI) | payer OTHER ==
[2018-09-09 09:54] VITALS: BP 102/53
--- NOTE | 2019-05-22 17:09 | RAD ---
EXAM: AP, lateral, bilateral oblique and open-mouth odontoid views of the cervical spine DATE: 05/22/2019 12:00 AM CLINICAL HISTORY: Chronic neck may COMPARISON: None available. FINDINGS: On the lateral view, the cervical spine is imaged from the skull base to C7. Mild C5-6 and moderate C6-7 disc height loss. Vertebral body heights are preserved. No evidence for acute fracture. Trace anterolisthesis of C4 on C5 measures 2 mm. No spondylolisthesis. Mild bilateral C5-6 and C6-7 neural foraminal narrowing. Normal predental space. No significant prevertebral soft tissue swelling. IMPRESSION: No evidence for acute fracture or subluxation. Vertebral degenerative changes most prominent at C5-6 and C6-7. Electronically signed by: Mo Arenas MD (05/22/2019 5:06 PM) [facility]
== END | disposition home or self-care (01) ==
LOC: RAD 15:06
PROVIDERS: ATTEND Nurse Practitioner Family
DX: M47.812 Spondylosis without myelopathy or radiculopathy, cervical region (principal)
CPT/HCPCS: 72050

== ENCOUNTER → 2020-01-25 | Outpatient (CLI) | payer OTHER ==
[2018-09-09 09:54] VITALS: BP 102/53
[~2020-01-25] MED LIST changes: +OMEP40CA45 PO; -OMEP40CA5 PO
--- NOTE | 2020-01-26 15:24 | RAD ---
History: Routine screening. Technique: Bilateral digital mammographic routine views were obtained with 2-D and 3-D technique including CAD - computer aided detection. Comparison: 12/20/2008, 02/19/2012, 10/10/2018. Findings: Breast Tissue Density C : The breast tissue is heterogeneously dense. Scattered fibroglandular elements may obscure underlying pathology. There are no suspicious masses, microcalcifications or areas of architectural distortion. Impression: No suspicious findings. BI-RADS Category 1: Negative. Normal interval followup. Your mammogram demonstrates that you have dense breast tissue, which could hide abnormalities, and if you have other risk factors for breast cancer that have been identified, you might benefit from supplemental screening tests that may be suggested by your ordering physician. Dense breast tissue, in and of itself, is a relatively common condition. This information is not provided to cause undue concern, but rather to raise your awareness and to promote discussion with your physician regarding the presence of other risk factors, in addition to dense breast tissue. A report of your mammography results will be sent to you and your physician. You should contact your physician if you have any questions or concerns regarding this report. A mammogram does not have 100% sensitivity and therefore a negative imaging study should not delay further work up of a suspicious abnormality. The patient will receive a letter with the results in the mail. Patient information is entered into the reminder system with a target due date for the next screening mammogram. The patient will receive a reminder. "Our facility is accredited by the [employer] Mammography Program." BI-RADS 1 -- negative findings (within normal)
== END | disposition home or self-care (01) ==
LOC: MAMMO 13:25
PROVIDERS: ATTEND Obstetrics & Gynecology
DX: Z12.31 Encounter for screening mammogram for malignant neoplasm of breast (principal); N64.89 Other specified disorders of breast
CPT/HCPCS: 77063; 77067

== ENCOUNTER → 2020-10-02 | Outpatient (CLI) | payer OTHER ==
[2018-09-09 09:54] VITALS: BP 102/53
== END ==
LOC: LAB 08:02
PROVIDERS: ATTEND Internal Medicine Pulmonary Disease
DX: J02.9 Acute pharyngitis, unspecified (principal); R53.81 Other malaise; Z20.828 Contact with and (suspected) exposure to other viral communicable diseases
CPT/HCPCS: U0003

== ENCOUNTER → 2020-10-15 | Outpatient (CLI) | payer OTHER ==
[2018-09-09 09:54] VITALS: BP 102/53
== END ==
LOC: LAB 12:10
PROVIDERS: ATTEND Internal Medicine Pulmonary Disease
DX: J02.9 Acute pharyngitis, unspecified (principal); R53.81 Other malaise; Z20.828 Contact with and (suspected) exposure to other viral communicable diseases
CPT/HCPCS: 87426; U0003

== ENCOUNTER → 2020-12-20 | Outpatient (CLI) | payer OTHER ==
[2018-09-09 09:54] VITALS: BP 102/53
[~2020-12-20] MED LIST changes: +HYDR-2759 PO; -OMEP40CA45 PO; +OMEP40CA7 PO
== END ==
LOC: SPEC 11:11
PROVIDERS: ATTEND Internal Medicine
DX: Z01.419 Encounter for gynecological examination (general) (routine) without abnormal findings (principal)
CPT/HCPCS: 88175

== ENCOUNTER 2021-03-03 11:10 | Emergency (ER) | payer OTHER ==
[~2021-03-03] VITALS: Ht 167.6 cm; Wt 84.5 kg
[~2021-03-03 11:10] MED LIST changes: -HYDR-2759 PO; +OMEP40CA45 PO; -OMEP40CA7 PO
--- NOTE | 2021-03-03 11:31 | PHYS DOC ---
Past Medical History Past Medical History: Arthritis, Arrhythmia, Other Additional Past Medical Histor: SIC SINUS RHYTHM, BARRETS ESPPHAGUS, MONO VISION Past Surgical History: Pacemaker, Other Additional Past Surgical Histo: RT KNEE SCOPE, LASIX, LEFT BREAST BIOPSY, PACEMAKER Smoking Status: Never Smoker Alcohol Use: Occasionally Drug Use: None General Adult EDM: Chief Complaint: UPPER EXTREMITY PAIN HPI: HPI: Patient is a 66 year old female who presented to ER due to right elbow injury. Patient said she was preventing a table from fall down using her right hand to stop it. The table was heavy and it twisted her right elbow, having pain with any movement of her right elbow. Patient denied any other injury, no weakness or numbness. Review of Systems: Review of Systems: Constitutional: Denies fever or chills. [] Eyes: Denies change in visual acuity. [] HENT: Denies nasal congestion or sore throat. [] Respiratory: Denies cough or shortness of breath. [] Cardiovascular: Denies chest pain or edema. [] GI: Denies abdominal pain, nausea, vomiting, bloody stools or diarrhea. [] : Denies dysuria. [] Musculoskeletal: Positive for right elbow injury. Integument: Denies rash. [] Neurologic: Denies headache, focal weakness or sensory changes. [] Endocrine: Denies polyuria or polydipsia. [] Lymphatic: Denies swollen glands. [] Psychiatric: Denies depression or anxiety. [] Heart Score: C/O Chest Pain: N/A Risk Factors: Risk Factors: DM, Current or recent (<one month) smoker, HTN, HLP, family history of CAD, obesity. Risk Scores: Score 0 - 3: 2.5% MACE over next 6 weeks - Discharge Home Score 4 - 6: 20.3% MACE over next 6 weeks - Admit for Clinical Observation Score 7 - 10: 72.7% MACE over next 6 weeks - Early Invasive Strategies Allergies: Allergies: Allergies Coded Allergies Type Severity Reaction Last Updated Verified dimenhydrinate Allergy Intermediate Swelling 03/03/21 Yes Physical Exam: PE: Constitutional: Well developed, well nourished, no acute distress, non-toxic appearance. [] HENT: Normocephalic, atraumatic, bilateral external ears normal, , nose normal. [] Eyes: PERRLA, EOMI, conjunctiva normal, no discharge. [] Neck: Normal range of motion, no tenderness, supple, no stridor. [] Skin: Warm, dry, no erythema, no rash. [] Extremities: Right elbow is tender to palpation, no swelling noted, no deformity noted. Neurologic: Alert and oriented X 3, normal motor function, normal sensory function, no focal deficits noted. [] Psychologic: Affect normal, judgement normal, mood normal. [] EKG: EKG: [] Radiology/Procedures: Radiology/Procedures: [][facility] [address] [place] [address] IMAGING REPORT Signed PATIENT: DAVID LANGSTON ACCOUNT: [id number] : 1955 LOCATION: ER AGE: 66 SEX: F EXAM STATUS: REG ER ORD. PHYSICIAN: JEFFERY CARDENAS DO REASON: right elbow injured PROCEDURE: ELBOW RIGHT 3V RIGHT ELBOW AP LATERAL AND OBLIQUE Clinical Indication: Reason: right elbow injured Comparison: None. Findings: There is no acute fracture or dislocation. No evidence of joint effusion. There is no radiopaque foreign body. Mild soft tissue swelling medial to the elbow. IMPRESSION: No acute fracture or dislocation. Electronically signed by: Gopal Chapin MD (03/03/2021 12:22 PM) [id number] DICTATED and SIGNED BY: GOPAL CHAPIN MD DATE: 03/03/21 [id number] Course & Med Decision Making: Course & Med Decision Making Pertinent Labs and Imaging studies reviewed. (See chart for details) Geronimo is a 66-year-old female who sprained her right elbow, a sling was applied, patient will be discharged home, she will need to follow-up with her family physician for reevaluation. Livia Disclaimer: Livia Disclaimer: This electronic medical record was generated, in whole or in part, using a voice recognition dictation system. Departure Departure Impression: Primary Impression: Sprain of elbow, right Disposition: 01 DC HOME SELF CARE/HOMELESS Condition: STABLE Referrals: BECKY LAYNE MD (PCP) Please follow up with your doctor this week for reevaluation Patient Instructions: Elbow Injury Additional Instructions: Thank you for visiting our Emergency Department. We appreciate you trusting us with your care. If any additional problems come up don't hesitate to return to visit us. Please follow up with your primary care provider so they can plan additional care if needed and know about the problem that you had. If symptoms worsen come back to the Emergency Department. Any concerning symptoms that start such as chest pain, shortness of air, weakness or numbness on one side of the body, running high fevers or any other concerning symptoms return to the ER. Scripts Hydrocodone/Acetaminophen (Hydrocodone-Acetamin 5-325 mg) 1 Each Tablet 1 EACH PO Q6HRS PRN for PAIN, #12 TAB Prov: JEFFERY CARDENAS DO 03/03/21 JEFFERY CARDENAS DO Mar 03, 2021 11:31
[2021-03-03] MEDS ORDERED: HYDROcodone/APAP 5/325MG 1 TAB TABLET PO ONE (11:45)
--- NOTE | 2021-03-03 12:24 | RAD ---
RIGHT ELBOW AP LATERAL AND OBLIQUE Clinical Indication: Reason: right elbow injured Comparison: None. Findings: There is no acute fracture or dislocation. No evidence of joint effusion. There is no radiopaque foreign body. Mild soft tissue swelling medial to the elbow. IMPRESSION: No acute fracture or dislocation. Electronically signed by: Gopal Chapin MD (03/03/2021 12:22 PM) [id number]
[2021-03-03 12:33] VITALS: BP 119/56
[2021-03-03] MEDS ORDERED: HYDR-2759 PO (13:04)
== END 2021-03-03 13:18 | disposition home or self-care (01) ==
LOC: ER 11:10
DX: S53.491A Other sprain of right elbow, initial encounter (principal); M25.521 Pain in right elbow; M19.90 Unspecified osteoarthritis, unspecified site; Z98.890 Other specified postprocedural states; Z95.0 Presence of cardiac pacemaker; Z88.8 Allergy status to other drugs, medicaments and biological substances; W18.39XA Other fall on same level, initial encounter; Y93.89 Activity, other specified; Y92.89 Other specified places as the place of occurrence of the external cause; Y99.8 Other external cause status
CPT/HCPCS: 73080; 99283; A4565

== ENCOUNTER → 2021-03-24 | Outpatient (CLI) | payer OTHER ==
[2021-03-03 12:33] VITALS: BP 119/56
[~2021-03-24] MED LIST changes: +HYDR-2759 PO
--- NOTE | 2021-03-24 13:51 | RAD ---
EXAM: Bilateral digital screening mammogram with tomosynthesis. HISTORY: 66-year-old female presents for screening mammography. TECHNIQUE: Full-field digital craniocaudal and mediolateral oblique 2D and 3D tomosynthesis images of both breasts are obtained for evaluation. Computer aided detection was applied. COMPARISON: 01/25/2020 BREAST PARENCHYMAL DENSITY: Level C - Heterogeneously dense. FINDINGS: There is no new suspicious mass, microcalcification or region of architectural distortion. IMPRESSION: BI-RADS Category 2: Benign finding(s). RECOMMENDATION: Annual mammography is recommended. If your mammogram demonstrates that you have dense breast tissue, which could hide abnormalities, and if you have other risk factors for breast cancer that have been identified, you might benefit from s upplemental screening tests that may be suggested by your ordering physician. Dense breast tissue, i n and of itself, is a relatively common condition. This information is not provided to cause undue c oncern, but rather to raise your awareness and to promote discussion with your physician regarding th e presence of other risk factors, in addition to dense breast tissue. A report of your mammography re sults will be sent to you and your physician. You should contact your physician if you have any ques tions or concerns regarding this report. Mammography is a sensitive method for finding small breast cancers, but it does not detect them all a nd is not a substitute for careful clinical examination. A negative mammogram does not negate a clin ically suspicious finding and should not result in delay in biopsying a clinically suspicious abnorma lity. PQRS compliance statement - Patient information was entered into a reminder system with a target due date for the next mammogram. "Our facility is accredited by the [employer] Mammography [employer]." Electronically signed by: Kena Suárez MD (03/24/2021 1:48 PM) [id number]
== END ==
LOC: MAMMO 10:43
PROVIDERS: ATTEND Obstetrics & Gynecology
DX: Z12.31 Encounter for screening mammogram for malignant neoplasm of breast (principal)
CPT/HCPCS: 77063; 77067

== ENCOUNTER → 2021-07-07 | Outpatient (CLI) | payer OTHER ==
[~2021-07-07] MED LIST changes: -OMEP40CA45 PO; +OMEP40CA7 PO; +REGADENOSON 0.4 MG/5 ML DISP.SYRIN. IV ONE
--- NOTE | 2021-07-07 13:04 | CARD ---
MR#: [id number] Date of Study: 07/07/2021 Ordering Physician: WALESKA RAMIREZ, Referring Physician: Omar LANDEROS: Charles Colvin [facility] APPROVED REPORT EXAM: Two-dimensional and M-mode echocardiogram with Doppler and color Doppler. Other Information Quality : GoodHR: 65bpm Rhythm : NSR INDICATION Sick Sinus Rhythm Surgery/Intervention Pacemaker: 2D DIMENSIONS Left Atrium(2D)4.7 (1.6-4.0cm)IVSd1.0 (0.7-1.1cm) Aortic Root(2D)3.4 (2.0-3.7cm)LVDd5.0 (3.9-5.9cm) LVOT Diameter2.2 (1.8-2.4cm)PWd0.9 (0.7-1.1cm) LVDs2.5 (2.5-4.0cm)FS (%) 49.8 % SV94.8 mlLVEF(%)80.9 (>50%) Aortic Valve AoV Peak Grady.114.6cm/sAoV VTI28.2cm AO Peak GR.5.3mmHgLVOT Peak Grady.109.9cm/s AO Mean GR.3mmHgAVA (VMAX)3.55cm2 AI P 1/2 [id number] Mitral Valve MV E Qhxzprkd94.4cm/sMV E Peak Gr.3mmHg MV DECEL [id number] A Vlzmedel49.0cm/s MV E Mean Gr.1mmHgE/A Ratio1.2 Pulmonary Valve PV Peak Qijbeikn495.5cm/s Tricuspid Valve TR P. Kuzbjrmt583sd/sTR Peak Gr.22mmHg Pulmonary Vein S1 Lirgnkwv30.7cm/sD2 Pxskkgdk31.8cm/s LEFT VENTRICLE The left ventricle is normal size. There is normal left ventricular wall thickness. The left ventricu lar systolic function is normal. The ejection fraction is estimated at 60-65%. There is normal LV seg mental wall motion. Transmitral Doppler flow pattern is Grade II-pseudonormal filling dynamics. No le ft ventricle thrombus noted on this study. There is no ventricular septal defect visualized. There is no left ventricular aneurysm. There is no mass noted in the left ventricle. RIGHT VENTRICLE The right ventricle is normal size. There is normal right ventricular wall thickness. The right ventr icular systolic function is normal. Pacer wire noted in RV. ATRIA The left atrium is moderately dilated. The right atrium size is normal. The interatrial septum is int act with no evidence for an atrial septal defect or patent foramen ovale as noted on 2-D or Doppler i maging. AORTIC VALVE The aortic valve is mildly sclerotic. Doppler and Color Flow revealed mild aortic regurgitation. Ther e is no significant aortic valvular stenosis. There is no aortic valvular vegetation. MITRAL VALVE The mitral valve is normal in structure and function. There is no evidence of mitral valve prolapse. There is no mitral valve stenosis. Doppler and Color-flow revealed mild mitral regurgitation. TRICUSPID VALVE The tricuspid valve is normal in structure and function. Doppler and Color Flow revealed mild tricusp id regurgitation. There is no tricuspid valve prolapse or vegetation. There is no tricuspid valve ty nosis. PULMONIC VALVE The pulmonary valve is normal in structure and function. Doppler and Color Flow revealed no pulmonic valvular regurgitation. There is no pulmonic valvular stenosis. GREAT VESSELS The aortic root is normal in size. The ascending aorta is normal in size. The pulmonary artery is nor mal. The IVC is normal in size and collapses >50% with inspiration. PERICARDIAL EFFUSION There is no pleural effusion. There is no evidence of significant pericardial effusion. Critical Notification Critical Value: No <Conclusion> The left ventricular systolic function is normal. The ejection fraction is estimated at 60-65%. There is normal LV segmental wall motion. Transmitral Doppler flow pattern is Grade II-pseudonormal filling dynamics. Pacer wire noted RA/RV. Mild aortic regurgitation. Mild mitral regurgitation. Mild tricuspid regurgitation. There is no evidence of significant pericardial effusion. Signed by : Waleska Ramirez, Electronically Approved : 07/07/2021 13:04:39
--- NOTE | 2021-07-07 14:26 | RAD ---
MR#: [id number] Date of Study: 07/07/2021 Ordering Physician: WALESKA WINTER, Referring Physician: HECTOR LANDEROS Tech: RT Emmett Rodrigues) (N) APPROVED REPORT Test Type: Pharmacological Stress Nurse/Tech: Nida Bower RN Test Indications: Sick Sinus Syndrome Cardiac History: SSS, Pacemaker, See EMR. Medications: See EMR. Medical History: See EMR. Resting ECG: A-Paced Resting Heart Rate: 62 bpm Resting Blood Pressure: 124/65mmHg Pretest Chest Pain: No chest pain Nurse/Tech Notes Lungs CTA, Heart tones regular. Consent: The procedure was explained to the patient in lay terms. Informed consent was witnessed. David eout was entered into [employer]. History and Stress Test performed by RT Emmett Rodrigues) (N) Pharm. Details Pharmacologic stress testing was performed using 0.4mg per 5ml of regadenoson given intravenously ove r 7-10 seconds. Stress Symptoms Nausea & Dizziness. Symptoms were resolved by the end of rest. POST EXERCISE Reason for Termination: Infusion complete Max HR: 120 bpm Max Blood Pressure: 136/55mmHg Blood Pressure response to exercise: Normal blood pressure response during stress. Heart Rate response to exercise: WNL Chest Pain: No. Arrhythmia: No. ST Change: No. INTERPRETATION Stress EKG Conclusion: Baseline EKG showed atrial paced rhythm. Nondiagnostic changes at peak stress . No arrhythmias. Imaging Protocol IMAGE PROTOCOL: Rest Tc-99m/stress Tc-99m 1 day Rest: Stress: Viability: Radiopharm.Tc99m AxktholezEo26v Sestamibi Wjpa21kYl 31.4mCi Duration 15min. 10min. Img Date 07/07/2021 07/07/2021 Inj-Img Cznn02glt. 60min. Rest Admin Site:IV - Right HandAdministrator:RT Emmett Bautista)(N) Stress Admin Site: IV - Right HandAdministrator: RT Emmett Rodrigues)(N) STRESS DATA End Diast. Vol.90.0mlAv. Heart Rate60.0bpm End Syst. Vol.15.0mlCO Index BSA0.0L/min Myocardial Fkaf944.0gEject. Nbhuopjc97.0% Stress Rates Pk. Fill Rate3.20EDV/secLVtime Pk. Fill 149.95msec Pk. Empty Rate3.85ESV/secLVtime Pk. Ztmhg517.27msec 1/3 Pk. Fill2.06EDV/sec Stress Scores Regional WT0.00Summed WT0.00 Regional WM0.00Summed WM0.00 Study quality was good. Left Ventricular size was Normal at Rest and Stress. Lung uptake was . Left Ventricular ejection fraction is 83%. The rest and stress images show normal perfusion, normal contraction and thickening. LV Perf. Quant 17 Seg. SSS0.00 17 Seg. SRS2.00 17 Seg. SDS0.00 Stress Defect Extent (% LAD)0.00Rest Defect Extent (% LAD)0.00Rev. Defect Extent (% LAD)0.00 Stress Defect Extent (% LCX) 0.00Rest Defect Extent (% LCX)0.00Rev. Defect Extent (% LCX)0.00 Stress Defect Extent (% RCA)0.00Rest Defect Extent (% RCA)2.20Rev. Defect Extent (% RCA)0.00 Stress Defect Extent (% FADI)0.00Rest Defect Extent (% FADI)2.80Rev. Defect Extent (% FADI)0.00 Conclusion 1. Regadenoson cardioisotope stress test did not show any evidence of ischemia or infarct. 2. Normal left ventricular systolic function with ejection fraction calculated at 83%. 3. Low risk for cardiac events. Signed by : Waleska Winter, Electronically Approved : 07/07/2021 14:25:23
== END ==
LOC: NM 10:36
PROVIDERS: ATTEND Internal Medicine Cardiovascular Disease
DX: I08.3 Combined rheumatic disorders of mitral, aortic and tricuspid valves (principal); I49.5 Sick sinus syndrome
CPT/HCPCS: 78452; 93017; 93306; A9500; J2785

== ENCOUNTER → 2022-04-06 | Outpatient (CLI) | payer OTHER ==
[~2022-04-06] MED LIST changes: -OMEP20TA8 PO; +OMEP20TA91 PO; -REGADENOSON 0.4 MG/5 ML DISP.SYRIN. IV ONE
--- NOTE | 2022-04-06 09:13 | KCIC ---
CT for coronary artery calcium scoring without IV contrast 04/06/2022 CLINICAL HISTORY: Family history of heart disease. Sick sinus syndrome. Hyperlipidemia. TECHNIQUE: Unenhanced, contiguous, 3 mm axial sections were obtained through the heart with the field -of-view limited to the heart. One or more of the following individualized dose reduction techniques were utilized for this study: 1. Automated exposure control. 2. Adjustment of the mA and/or kV according to patient size. 3. Use of iterative reconstruction technique. Findings: Images obtained through the heart and lungs demonstrate pacemaker leads noted in place. The heart is mildly enlarged. Scattered atherosclerotic plaque formation is seen involving the thoracic aorta and left anterior descending artery. Minimal dependent subsegmental atelectasis is seen involvi ng both lungs. The computer generated calcium scoring utilizing PASCAL-130 criteria are as as follows: Left main artery 0.0 Left anterior descending artery 39.8 Left circumflex artery 0.0 Right coronary artery 0.0 The total calcium score is 39.8 Table: 0: No plaque is present. The chance of significant heart disease is less than 5 percent and correspon ds to a very low risk for myocardial infarction. 1-10: A small amount of plaque is present the chance of significant heart disease is less than 10 per cent and corresponds to a low risk for myocardial infarction. 11-100: Plaque is present. This correlates with mild heart disease and a moderate risk for myocardial infarction. 101 to 400: A moderate amount of plaque is present. This correlates with heart disease and a moderate to high risk for myocardial infarction. Over 400: A large amount of plaque is present. This correlates with a greater than 90 percent chance of a high-grade stenosis. The risk for myocardial infarction is high. IMPRESSION: The total coronary artery calcium score is 39.8. Calcified plaque is present. This correl ates with mild heart disease. Electronically signed by: Asif Ding MD (04/06/2022 9:11 AM) [id number]
== END ==
LOC: KCIC CT 08:10
PROVIDERS: ATTEND Nurse Practitioner
DX: I51.7 Cardiomegaly (principal); J98.11 Atelectasis; E78.5 Hyperlipidemia, unspecified
CPT/HCPCS: 75571